=== PATIENT | female | born 1970 | race Caucasian/White ===

== ENCOUNTER → 2017-06-04 | Outpatient (CLI) | payer BC | LOC: RAD 01:48 | DX: Z12.31 Encounter for screening mammogram for malignant neoplasm of breast (principal) ==

== ENCOUNTER → 2018-06-04 | Outpatient (CLI) | payer OTHER | LOC: RAD 10:53 | DX: Z12.31 Encounter for screening mammogram for malignant neoplasm of breast (principal) ==

== ENCOUNTER → 2018-06-11 | Outpatient (CLI) | payer OTHER | LOC: BC 01:50 | DX: N60.02 Solitary cyst of left breast (principal) ==

== ENCOUNTER 2018-10-23 08:56 | Emergency (ER) | payer OTHER ==
[~2018-10-23] VITALS: Ht 154.9 cm; Wt 69.4 kg
[2018-10-23 09:22] LABS: ABSOLUTE NEUTROPHILS 4.2 thou/uL (1.4-8.2); BASOPHILS 0.6 % (0.0-2.0); HEMATOCRIT 42.2 % (37.0-47.0); HEMOGLOBIN 14.6 gm/dL (12.0-15.0); MCH 32.4 pg (26.0-34.0); MCHC 34.5 g/dL (28.0-37.0); MCV 93.9 fL (80.0-100.0); MONOCYTES 3.9 % (1.0-8.0); PLATELET COUNT 473 thou/uL (150-400); POLYS 60.5 % (36.0-66.0); RBC 4.49 mil/uL (4.20-5.00); RDW 13.2 % (10.5-14.5); WBC 6.9 thou/uL (4.0-11.0)
--- NOTE | 2018-10-23 09:33 | EKG ---
[address] [address] ELECTROCARDIOGRAM REPORT Name: RADHA NIEVES Room #: [facility]#: [id number] ������������������ Admission: ������������������ Attend Phys: Discharge: ������������������ Date of : 72 Report #: [id number] ����������������������������������������������������������������� [id number] THIS REPORT FOR: //name// [facility] ED Test Date: 2018-10-23 Test Time: 08:59:19 Pat Name: RADHA LIZBETH Department: Room: Gender: Administrative Services Manager: [facility] : 1970 Requested By: Pepe Trujillo Order Number: [id number] MD: Yousuf Abernathy Measurements Intervals [place] Rate: 129 P: 83 [place]: 155 QRS: 60 QRSD: 87 T: 11 QT: 297 QTc: 436 Interpretive Statements Sinus tachycardia Nonspecific ST segment abnormality No previous ECG available for comparison Electronically Signed On 10-23-2018 9:33:23 CDT by Yousuf Abernathy [email or web address] ��������������������������������������������� <ELECTRONICALLY SIGNED> ���������������������������������������� By: Yousuf Abernathy MD, [facility] ��������������������������������������������� 10/23/18 0933 [id number] Yousuf Abernahty MD, FACC /EPI
[2018-10-23] MEDS ORDERED: PRILOSEC 10MG C10 MG PO (09:43)
[2018-10-23 09:52] LABS: ANION GAP 16 mmol/L (7-16); BUN 16 mg/dL (7-18); CALCIUM 9.4 mg/dL (8.5-10.1); CHLORIDE 103 mmol/L (98-107); CO2 23 mmol/L (21-32); CREATININE 0.7 mg/dL (0.6-1.0); GLUCOSE 139 mg/dL (74-106); POTASSIUM 3.5 mmol/L (3.5-5.1); SODIUM 142 mmol/L (136-145)
[2018-10-23 10:00] LABS: TROPONIN-I <0.06 ng/mL (<0.06)
[2018-10-23] MEDS ORDERED: MEDROLDOSEPACK PO (11:56)
[2018-10-23 12:01] VITALS: BP 116/65
--- NOTE | 2018-10-25 18:15 | EKG ---
[address] [place] [address] ELECTROCARDIOGRAM REPORT Name: RADHA NIEVES Room #: 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 : 1970 Requested By: Pepe Trujillo Order Number: [id number] MD: Gabino Jacobson Measurements Intervals [place] Rate: 97 P: 77 [place]: 138 QRS: 47 QRSD: 81 T: 35 QT: 356 QTc: 452 Interpretive Statements Sinus rhythm Poor R-wave progression Nonspecific ST-T wave changes Compared to ECG 10/23/2018 08:59:19 Significant changes Electronically Signed On 10-25-2018 18:15:21 CDT by Gabino Jacobson [email or web address] ��������������������������������������������� <ELECTRONICALLY SIGNED> ���������������������������������������� By: Gabino Jacobson MD ��������������������������������������������� 10/25/18 1815 1120 19 Gabino Jacobson MD /EPI
== END 2018-10-23 12:11 ==
LOC: ER 08:56
PROVIDERS: Emergency Medicine
DX: J40 Bronchitis, not specified as acute or chronic (principal); R00.0 Tachycardia, unspecified; K21.9 Gastro-esophageal reflux disease without esophagitis; Z98.890 Other specified postprocedural states; Z88.8 Allergy status to other drugs, medicaments and biological substances

== ENCOUNTER → 2019-12-22 | Outpatient (CLI) | payer OTHER ==
[~2019-12-22] MED LIST: MEDROLDOSEPACK PO; PRILOSEC 10MG C10 MG PO
== END ==
LOC: BC 11:08
PROVIDERS: ATTEND Obstetrics & Gynecology
DX: Z12.31 Encounter for screening mammogram for malignant neoplasm of breast (principal)